=== PATIENT | female | born 1965 | race African-American/Black ===

== ENCOUNTER → 2016-12-07 | Outpatient (CLI) | payer OTHER ==
[~2016-12-07] MED LIST: ALB/IPRATROPIUM/1 E1 NEB; AMLODIPINE BESYL5 MG PO; ASPIRIN81 MG PO; BUMEX1 MG PO; CARVEDILOL12.5 MG PO; CHANTIX0.5 MG PO; HCTZ PO; K-DUR20 ME2 PO; LIPITOR40 MG PO; NICOTINE TRANSD21 MG EXT; SYMBICORT INH; ZITHROMAX500 MG PO
--- NOTE | ~2016-12-07 | MY29 ---
[facility] A Service of [facility] RADIOLOGY TEXT RESULTS PATIENT: RICO HUDDLESTON LOCATION: [facility] : 61 UNIT #: [id number] AGE: [address]: URVASHI DYE MD SEX: F ORDER DR: [id number] [facility]. [place], [place] [address] [id number] O MR#: [id number] Acc #: [id number] NAME: RICO HUDDLESTON : 1965 SEX: F STUDY DATE/TIME: 12/07/2016 9:10 UNIT: [facility] ROOM: STUDY DESCRIPTION: [facility] SCREENING W/ CAD BILAT Attending Physician: Urvashi Dye M.D. Referring Physician: Urvashi Dye M.D. Ordering Physician: Urvashi Dye M.D. Primary Care Physician: Urvashi Dye M.D. MEDICAL IMAGING REPORT This report is preliminary unless electronic signature is present EXAM Bilateral digital screening mammogram with CAD. HISTORY Routine screening. No current complaints. Baseline study; no family history of breast cancer. FINDINGS MLO and CC digital views of each breast were obtained and viewed with an FDA-approved CAD. There are scattered fibroglandular densities present. There are no masses or abnormal calcifications. IMPRESSION No evidence of malignancy. Patients over the age of 40 are entered into a reminder system with target due date for the next mammogram. A result letter will also be sent to the patient. BIRADS: 1 Negative Dictated by... Lefty Kamara M.D. THIS IS AN ELECTRONICALLY VERIFIED REPORT Lefty Kamara M.D. at 12/07/2016 3:10 PM GUSTAVO/kimberly TD: 12/07/2016 14:19 JOB #: [id number] [facility] A Service of [facility] RADIOLOGY TEXT RESULTS PATIENT: RICO HUDDLESTON LOCATION: [facility] : 61 UNIT #: [id number] AGE: [address]: URVASHI DYE MD SEX: F ORDER DR: MEDICAL IMAGING REPORT Page 1 of 1 COPY
== END | disposition home or self-care (01) ==
LOC: CWCC 08:30
DX: Z12.31 Encounter for screening mammogram for malignant neoplasm of breast (principal)
CPT/HCPCS: G0202